=== PATIENT | female | born 1970 | race Caucasian/White ===

== ENCOUNTER 2019-07-18 18:56 | Emergency (ER) | payer BC, OTHER ==
[2019-07-18] MEDS ORDERED: LORazepam 2 MG/ML VIAL ONE ×2 (19:05→19:11)
[2019-07-18 19:33] LABS: Absolute Lymphocytes (CBC) 1.7 K/uL (0.7-4.9); Basophils % 0.3 % (0-1.3); Hematocrit 45.8 % (36.0-45.0); Lymphocytes % 19.6 % (15.3-44.8); MPV 9.5 fL (7.6-11.3); RBC Red Blood Cell Count 5.11 M/uL (3.86-4.86)
[2019-07-18 19:35] LABS: Protime INR 0.98
[2019-07-18 19:49] LABS: ALT/SGPT 247 U/L (12-78); Albumin 3.8 g/dL (3.4-5.0); Alkaline Phosphatase 70 U/L (45-117); BUN Blood Urea Nitrogen 21 mg/dL (7-18); Bicarbonate 22 mmol/L (21-32); Bilirubin Direct 0.3 mg/dL (0-0.2); Bilirubin Total 0.5 mg/dL (0.2-1.0); Glucose Level 91 mg/dL (74-106); Protein, Total 7.5 g/dL (6.4-8.2); Sodium Level 136 mmol/L (136-145)
[2019-07-18 19:56] LABS: Potassium 3.3 mmol/L (3.5-5.1)
[2019-07-18 20:06] LABS: Urine Blood NEGATIVE (NEG); Urine Glucose NEGATIVE (NEG); Urine Protein NEGATIVE (NEG); Urine Specific Gravity 1.015 (1.005-1.030)
[2019-07-18 20:11] LABS: AST/SGOT 464 U/L (15-37)
[2019-07-18 20:20] LABS: Barbiturates NEGATIVE (NEGATIVE); Benzodiazepines NEGATIVE (NEGATIVE); Cocaine NEGATIVE (NEGATIVE); METHAMPHETAM NEGATIVE (NEGATIVE); Methadone NEGATIVE (NEGATIVE); Opiates NEGATIVE (NEGATIVE); Phencyclidine NEGATIVE (NEGATIVE); THC Cannibis NEGATIVE (NEGATIVE)
[2019-07-18] MEDS ORDERED: NS KCL 20MEQ 1,000 ML IV ONE (20:20)
--- NOTE | 2019-07-19 00:59 | ER ---
Nurse's Notes [facility] Name: Giselle Myers Uppencamp Age: 49 yrs Sex: Female : 1970 Arrival Date: 07/18/2019 Time: 19:03 Bed 5 Private MD: Diagnosis: Alcohol abuse with intoxication Presentation: 07/17 19:03 Chief complaint: EMS states: FAMILY CALLED DUE TO HEAVY INTOXICATION AND PT REFUSAL TO bp GET OFF GROUND. Coronavirus screen: Patient denies fever greater than 100.4F, cough, shortness of breath, or difficulty breathing. Proceed with normal triage process. Ebola Screen: No symptoms or risks identified at this time. Initial Sepsis Screen: Does the patient meet any 2 criteria? Altered Mental Status. HR > 90 bpm. Yes Does the patient have a suspected source of infection? No. Patient's initial sepsis screen is negative. Risk Assessment: Do you want to hurt yourself or someone else? Patient reports no desire to harm self or others. 19:03 Method Of Arrival: EMS: [facility] bp 19:03 Acuity: FILEMON 2 bp 19:03 Care prior to arrival: IV initiated. 18 GA, in the right antecubital area. bp Triage Assessment: 19:09 General: Appears in no apparent distress. comfortable, obese, Behavior is agitated, bp combative. Pain: Denies pain. EENT: No deficits noted. Neuro: Level of Consciousness is confused, Oriented to person. Cardiovascular: Rhythm is sinus rhythm. Respiratory: No deficits noted. GI: No signs and/or symptoms were reported involving the gastrointestinal system. : No signs and/or symptoms were reported regarding the genitourinary system. Derm: No deficits noted. Musculoskeletal: No deficits noted. Historical: - Allergies: 19:09 No Known Allergies; bp - Home Meds: 19:09 Lisinopril Oral [Active]; Trazodone Oral [Active]; bp - PMHx: 19:09 Hypertension; Depression; bp - Immunization history:: Adult Immunizations unknown. - Social history:: Smoking status: unknown. Screenin:11 Abuse screen: Denies threats or abuse. Denies injuries from another. Nutritional bp screening: No deficits noted. Tuberculosis screening: No symptoms or risk factors identified. Fall Risk None identified. Assessment: 19:05 General: SEE TRIAGE NOTE. bp 19:20 Reassessment: PT is resting in bed with eyes closed, placed on 2L NC after Ativan jb4 administration due to O2 desating to 83% on RA. Snoring respirations noted. Pt moved up in bed with head of bed raised. Appears in no apparent distress. No s/s of pain noted. Respirations are even and unlabored, Airways is patent. 19:37 Reassessment: Snoring respirations have subsided after raising patient in bed and jb4 rasing the Head of the bed. O2 saturations \T\ 100% 2L NC. 21:00 Reassessment: Patient appears in no apparent distress at this time. No changes from jb4 previously documented assessment. Patient and/or family updated on plan of care and expected duration. Pain level reassessed. 22:00 Reassessment: Patient appears in no apparent distress at this time. Patient and/or jb4 family updated on plan of care and expected duration. Pain level reassessed. PT is resting in room with eyes closed, No s/s of pain or distress noted. respirations are even and unlabored. 23:00 Reassessment: Patient appears in no apparent distress at this time. No changes from jb4 previously documented assessment. Patient and/or family updated on plan of care and expected duration. Pain level reassessed. 07/18 00:00 Reassessment: Patient appears in no apparent distress at this time. No changes from jb4 previously documented assessment. Patient and/or family updated on plan of care and expected duration. Pain level reassessed. 01:20 Reassessment: Patient appears in no apparent distress at this time. Patient is alert, rr5 oriented x 3, equal unlabored respirations, skin warm/dry/pink. discharge instruction given and explained without complaints made, endorsed the patient to her mother. Vital Signs: 07/17 19:03 BP 126 / 59; Pulse 98; Resp 15; Pulse Ox 95% on R/A; bp 20:00 BP 104 / 65; Pulse 103; Resp 16; Pulse Ox 100% on 2 lpm NC; jb4 21:00 BP 106 / 79; Pulse 97; Resp 16; Pulse Ox 100% on 2 lpm NC; jb4 22:00 BP 117 / 83; Pulse 95; Resp 16; Pulse Ox 100% on 2 lpm NC; jb4 23:30 BP 102 / 70; Pulse 84; Resp 18; Pulse Ox 100% on R/A; jb4 07/18 00:30 BP 118 / 89; Pulse 82; Resp 18; Temp 98.6(TE); Pulse Ox 100% on R/A; jb4 01:20 BP 121 / 70; Pulse 85; Resp 16; Temp 98.5; Pulse Ox 99% on R/A; rr5 ED Course: 07/17 19:00 Maintain EMS IV. Dressing intact. Good blood return noted. Site clean \T\ dry. Gauge \T\ bp site: 18G R AC. 19:03 Patient arrived in ED. bp 19:04 Handy Sainz PA is PHCP. jr8 19:04 So Cuellar MD is Attending Physician. jr8 19:07 Triage completed. bp 19:10 Arm band placed on. bp 19:11 Patient has correct armband on for positive identification. Placed in gown. Bed in low bp position. Call light in reach. Side rails up X2. 19:32 Shai Warren RN is Primary Nurse. jb4 20:24 EKG done, by ED staff, reviewed by Handy SCHMIDT. rr5 22:17 PHCP role handed off by Handy Sainz PA kb 22:17 Laney Ignacio FNP-C is PHCP. kb 07/18 01:25 No provider procedures requiring assistance completed. IV discontinued, intact, rr5 bleeding controlled, No redness/swelling at site. Pressure dressing applied. Administered Medications: 07/17 19:05 Drug: Ativan 2 mg Route: IVP; Site: right antecubital; bp 19:30 Follow up: Response: No adverse reaction; Anxiety decreased jb4 19:05 Drug: NS 0.9% 1000 ml Route: IV; Rate: 1000 ml; Site: right antecubital; bp 20:30 Follow up: Response: No adverse reaction; IV Status: Completed infusion; IV Intake: jb4 1000ml 19:09 Drug: Ativan 2 mg Route: IVP; Site: right antecubital; em 19:30 Follow up: Response: No adverse reaction; Anxiety decreased jb4 20:23 Drug: NS 0.9% with KCl 20 mEq/L 1000 ml {Note: 500 ml/hr order by handy.} Route: IV; rr5 Rate: calculated rate; Site: right antecubital; 22:30 Follow up: Response: No adverse reaction; IV Status: Completed infusion; IV Intake: jb4 1000ml 07/18 00:54 CANCELLED (Physician Discretion): Banana Bag - (NS 0.9% 1000 ml, foLIC Acid 1 mg, kb Thiamine 100 mg, Multivitamin 1 amp) IV at calculated rate once Intake: 07/17 20:30 IV: 1000ml; Total: 1000ml. jb4 22:30 IV: 1000ml; Total: 2000ml. jb4 Outcome: 07/18 00:55 Discharge ordered by . kb 01:25 Discharged to home via wheelchair, with family. rr5 01:25 Condition: stable 01:25 Discharge instructions given to patient, family, Instructed on discharge instructions, follow up and referral plans. Demonstrated understanding of instructions, follow-up care. 01:26 Patient left the ED. rr5 Signatures: Laney Ignacio, MANAGER QA-C MANAGER QA-Ckb Froylan Brennan RN RN Handy Chau PA PA 8 Shai Warren RN RN jb4 Yann Saucedo, Osvaldo Max RN, RN RN rr5
--- NOTE | 2019-07-19 01:00 | EDPHYS ---
Physician Documentation [facility] Name: Giselle Myers Uppencamp Age: 49 yrs Sex: Female : 1970 Arrival Date: 07/18/2019 Time: 19:03 Bed 5 Private MD: ED Physician So Cuellar HPI: 07/17 22:05 This 49 yrs old Female presents to ER via EMS with complaints of INTOXICATION.jr8 22:05 The patient presents to the emergency department with a history of substance abuse, jr8 Type: alcohol. Onset: The symptoms/episode began/occurred acutely, today. Associated signs and symptoms: The patient has no apparent associated signs or symptoms. Severity of symptoms: At their worst the symptoms were moderate in the emergency department the symptoms are unchanged. It is unknown whether or not the patient has had similar symptoms in the past. The patient has not recently seen a physician. 22:06 Family called EMS because patient was severely intoxicated and would not cooperate at [facility] home. Patient alert and oriented to person, place, event but slurring speech and agitated upon arrival. Smell of alcohol present on body. Denies of any pain or other complaints at this time. Stated that she is just upset . Historical: - Allergies: 19:09 No Known Allergies; bp - Home Meds: 19:09 Lisinopril Oral [Active]; Trazodone Oral [Active]; bp - PMHx: 19:09 Hypertension; Depression; bp - Immunization history:: Adult Immunizations unknown. - Social history:: Smoking status: unknown. ROS: 22:06 Eyes: Negative for injury, pain, redness, and discharge, ENT: Negative for injury, jr8 pain, and discharge, Neck: Negative for injury, pain, and swelling, Cardiovascular: Negative for chest pain, palpitations, and edema, Respiratory: Negative for shortness of breath, cough, wheezing, and pleuritic chest pain, Abdomen/GI: Negative for abdominal pain, nausea, vomiting, diarrhea, and constipation, Back: Negative for injury and pain, MS/Extremity: Negative for injury and deformity, Skin: Negative for injury, rash, and discoloration, Neuro: Negative for headache, weakness, numbness, tingling, and seizure. 22:06 Psych: Positive for alcohol dependence. Exam: 22:06 Eyes: Pupils equal round and reactive to light, extra-ocular motions intact. Lids and jr8 lashes normal. Conjunctiva and sclera are non-icteric and not injected. Cornea within normal limits. Periorbital areas with no swelling, redness, or edema. ENT: Nares patent. No nasal discharge, no septal abnormalities noted. Tympanic membranes are normal and external auditory canals are clear. Oropharynx with no redness, swelling, or masses, exudates, or evidence of obstruction, uvula midline. Mucous membranes moist. Neck: Trachea midline, no thyromegaly or masses palpated, and no cervical lymphadenopathy. Supple, full range of motion without nuchal rigidity, or vertebral point tenderness. No Meningismus. Cardiovascular: Regular rate and rhythm with a normal S1 and S2. No gallops, murmurs, or rubs. Normal PMI, no JVD. No pulse deficits. Respiratory: Lungs have equal breath sounds bilaterally, clear to auscultation and percussion. No rales, rhonchi or wheezes noted. No increased work of breathing, no retractions or nasal flaring. Abdomen/GI: Soft, non-tender, with normal bowel sounds. No distension or tympany. No guarding or rebound. No evidence of tenderness throughout. Back: No spinal tenderness. No costovertebral tenderness. Full range of motion. Skin: Warm, dry with normal turgor. Normal color with no rashes, no lesions, and no evidence of cellulitis. MS/ Extremity: Pulses equal, no cyanosis. Neurovascular intact. Full, normal range of motion. Neuro: Awake and alert, GCS 15, oriented to person, place, time, and situation. Cranial nerves II-XII grossly intact. Motor strength 5/5 in all extremities. Sensory grossly intact. Cerebellar exam normal. Normal gait. Vital Signs: 19:03 BP 126 / 59; Pulse 98; Resp 15; Pulse Ox 95% on R/A; bp 20:00 BP 104 / 65; Pulse 103; Resp 16; Pulse Ox 100% on 2 lpm NC; jb4 21:00 BP 106 / 79; Pulse 97; Resp 16; Pulse Ox 100% on 2 lpm NC; jb4 22:00 BP 117 / 83; Pulse 95; Resp 16; Pulse Ox 100% on 2 lpm NC; jb4 23:30 BP 102 / 70; Pulse 84; Resp 18; Pulse Ox 100% on R/A; jb4 07/18 00:30 BP 118 / 89; Pulse 82; Resp 18; Temp 98.6(TE); Pulse Ox 100% on R/A; jb4 01:20 BP 121 / 70; Pulse 85; Resp 16; Temp 98.5; Pulse Ox 99% on R/A; rr5 MDM: 07/17 19:04 Patient medically screened. jr8 22:06 Data reviewed: vital signs, nurses notes, lab test result(s), EKG. Data interpreted: jr8 Pulse oximetry: on room air is 95 %. Interpretation: normal. Counseling: I had a detailed discussion with the patient and/or guardian regarding: the historical points, exam findings, and any diagnostic results supporting the discharge/admit diagnosis, lab results, the need for outpatient follow up, a family practitioner, to return to the emergency department if symptoms worsen or persist or if there are any questions or concerns that arise at home. Response to treatment: the patient's symptoms have markedly improved after treatment, patient is well hydrated. ED course: Patient resenting comfortably in exam room. Alocohol level markedly elevated. Elevated LFTs as well. Probably longstanding alcohol use. Otherwise no other acute findings at this time. Will continue to hydrate and monitor for a while. When stable enough will d/c to home with family. Family called and notified about this as well and will to come and get patient when ready . 07/18 00:08 ED course: Pt resting comfortably on stretcher. vitals stable. sudhakar 00:54 ED course: Pt woke up, went to the restroom. States she is ready to go home. Family kb will be called to pick her up.. 07/17 19:04 Order name: Acetaminophen; Complete Time: 20: 07/17 19:04 Order name: Basic Metabolic Panel; Complete Time: 20: 07/17 19:04 Order name: CBC with Diff; Complete Time: 20: 07/17 19:04 Order name: ETOH Level; Complete Time: 20:07/17 19:04 Order name: Hepatic Function; Complete Time: 20: 07/17 19:04 Order name: PT-INR; Complete Time: 20:07/17 19:04 Order name: Ptt, Activated; Complete Time: 20:03 [facility] 07/17 19:04 Order name: Salicylate; Complete Time: 20:03 [facility] 07/17 19:04 Order name: Urine Drug Screen; Complete Time: 20:31 [facility] 07/17 20:01 Order name: Urine Dipstick--Ancillary (enter results) mw2 07/17 20:07 Order name: Urine Dipstick-Ancillary; Complete Time: 20:31 [facility] 07/17 19:04 Order name: EKG; Complete Time: 19:08 07/17 19:04 Order name: EKG - Nurse/Tech; Complete Time: 20:24 [facility] 07/17 19:04 Order name: IV Saline Lock; Complete Time: :34 07/17 19:04 Order name: Labs collected and sent; Complete Time: :34 07/17 19:04 Order name: Urine Dipstick-Ancillary (obtain specimen); Complete Time: : Administered Medications: 07/17 19:05 Drug: Ativan 2 mg Route: IVP; Site: right antecubital; bp 19:30 Follow up: Response: No adverse reaction; Anxiety decreased jb4 19:05 Drug: NS 0.9% 1000 ml Route: IV; Rate: 1000 ml; Site: right antecubital; bp 20:30 Follow up: Response: No adverse reaction; IV Status: Completed infusion; IV Intake: jb4 1000ml 19:09 Drug: Ativan 2 mg Route: IVP; Site: right antecubital; em 19:30 Follow up: Response: No adverse reaction; Anxiety decreased jb4 20:23 Drug: NS 0.9% with KCl 20 mEq/L 1000 ml {Note: 500 ml/hr order by handy.} Route: IV; rr5 Rate: calculated rate; Site: right antecubital; 22:30 Follow up: Response: No adverse reaction; IV Status: Completed infusion; IV Intake: jb4 1000ml 07/18 00:54 CANCELLED (Physician Discretion): Banana Bag - (NS 0.9% 1000 ml, foLIC Acid 1 mg, kb Thiamine 100 mg, Multivitamin 1 amp) IV at calculated rate once Disposition: 07/19/19 00:55 Discharged to Home. Impression: Alcohol abuse with intoxication. - Condition is Stable. - Discharge Instructions: Alcohol Intoxication, [id number]. - Medication Reconciliation Form, Thank You Letter, Antibiotic Education, Prescription Opioid Use form. - Follow up: Emergency Department; When: As needed; Reason: Worsening of condition. Follow up: Private Physician; When: 2 - 3 days; Reason: Recheck today's complaints, Continuance of care, Re-evaluation by your physician. Addendum: 07/20/2019 02:10 Co-signature as Attending Physician, So Cuellar MD. m a2 Signatures: Dispatcher [employer] EDMS Laney Ignacio, RHINOLOGIST-C RHINOLOGIST-CkFroylan Valdes, RN RN em Handy Sainz PA PA jr8 Yann Saucedo RN RN bp So Cuellar MD MD ma2 Osvaldo Gordillo RN RN rr5 Shai Warren RN jb4 Corrections: (The following items were deleted from the chart) 07/17 22:07 22:06 Family called EMS because patient was severely intoxicated and would not jr8 cooperate at home. Patient alert and oriented to person, place, event but slurring speech and agitated upon arrival. Smell of alcohol present on body . jr8 07/18 00:54 00:39 Banana Bag - (Multivitamin 1 amp, NS 0.9% 1000 ml, Thiamine 100 mg, foLIC Acid 1 kb mg) IV at calculated rate once ordered. kb : 00:55 07/19/2019 00:55 Discharged to Home. Impression: Alcohol abuse with intoxication. rr5 Condition is Stable. Forms are Medication Reconciliation Form, Thank You Letter, Antibiotic Education, Prescription Opioid Use. Follow up: Emergency Department; When: As needed; Reason: Worsening of condition. Follow up: Private Physician; When: 2 - 3 days; Reason: Recheck today's complaints, Continuance of care, Re-evaluation by your physician. kb
[2019-07-19 01:48] VITALS: O2SAT 100
[2019-07-19 01:55] VITALS: BP 102/70
--- NOTE | 2019-07-19 11:21 | EKG ---
Test Date: 2019-07-18 Test Time: 20:16:17 Block Sealer: EMY MEASUREMENT RESULTS: Intervals: Rate: 115 RI: 172 QRSD: 96 QT: 332 QTc: 459 [place]: P: 54 RI: 172 QRS: 269 T: 12 INTERPRETIVE STATEMENTS: Sinus tachycardia with fusion complexes Right superior axis deviation Inferior infarct, age undetermined Cannot rule out Anterior infarct, age undetermined Abnormal ECG No previous ECG available for comparison Electronically Signed On 07-19-19 11:20:14 CDT by Woody Garcia
== END 2019-07-19 01:26 | disposition home or self-care (01) ==
LOC: ER 18:56
DX: F10.229 Alcohol dependence with intoxication, unspecified (principal); I10 Essential (primary) hypertension; F32.9 Major depressive disorder, single episode, unspecified
CPT/HCPCS: 36415; 80048; 80076; 80307; 80320; 80329; 81003; 85025; 85610; 85730; 93005; 96361; 96374; 99285